=== PATIENT | female | born 1960 | race Caucasian/White ===

== ENCOUNTER 2023-02-24 08:08 | Outpatient (RCR) | payer OTHER, SELFPAY | END 2023-02-24 23:59 | disposition home or self-care (01) | LOC: RPT 08:08 | PROVIDERS: ATTENDING PHYSICIAN Orthopaedic Surgery; PRIMARYCARE PHYSICIAN Family Medicine | DX: N39.3 Stress incontinence (female) (male) (principal); M54.9 Dorsalgia, unspecified; R15.1 Fecal smearing; R15.2 Fecal urgency; Z73.6 Limitation of activities due to disability; R10.2 Pelvic and perineal pain; N94.10 Unspecified dyspareunia | CPT/HCPCS: 97014; 97112; 97140; 97530 ==

== ENCOUNTER 2023-03-14 12:06 | Outpatient (RCR) | payer OTHER, SELFPAY | END 2023-04-07 14:51 | disposition home or self-care (01) | LOC: RPT 12:06 | PROVIDERS: ATTENDING PHYSICIAN Internal Medicine Gastroenterology; PRIMARYCARE PHYSICIAN Family Medicine | DX: N39.3 Stress incontinence (female) (male) (principal); M54.9 Dorsalgia, unspecified; R15.1 Fecal smearing; R15.2 Fecal urgency; R10.2 Pelvic and perineal pain; N94.10 Unspecified dyspareunia | CPT/HCPCS: 97110; 97112; 97140; 97530 ==

== ENCOUNTER → 2023-04-18 13:24 | Outpatient (REF) | payer OTHER, SELFPAY | LOC: HWWDC 13:24 | PROVIDERS: ATTENDING PHYSICIAN Obstetrics & Gynecology; FAMILY PHYSICIAN Family Medicine | DX: Z12.31 Encounter for screening mammogram for malignant neoplasm of breast (principal) | CPT/HCPCS: 77063; 77067 ==

== ENCOUNTER 2023-04-20 14:52 | Outpatient (RCR) | payer OTHER, SELFPAY | END 2023-04-20 23:59 | disposition home or self-care (01) | LOC: RPT 14:52 | PROVIDERS: ATTENDING PHYSICIAN Internal Medicine Gastroenterology; PRIMARYCARE PHYSICIAN Family Medicine | DX: N39.3 Stress incontinence (female) (male) (principal); M54.9 Dorsalgia, unspecified; R15.1 Fecal smearing; R15.2 Fecal urgency; R10.2 Pelvic and perineal pain; N94.10 Unspecified dyspareunia | CPT/HCPCS: 97110; 97530 ==

== ENCOUNTER → 2023-08-10 09:16 | Outpatient (REF) | payer OTHER, SELFPAY | LOC: HWRAD 09:16 | PROVIDERS: ATTENDING PHYSICIAN Internal Medicine; FAMILY PHYSICIAN Family Medicine | DX: M81.0 Age-related osteoporosis without current pathological fracture (principal) | CPT/HCPCS: 77080 ==

== ENCOUNTER 2024-05-23 06:22 | Day surgery (SDC) | payer OTHER, SELFPAY | END 2024-05-23 08:54 | disposition home or self-care (01) | LOC: GI 06:22 | PROVIDERS: ATTENDING PHYSICIAN Internal Medicine Gastroenterology; FAMILY PHYSICIAN Family Medicine | DX: K51.50 Left sided colitis without complications (principal); K57.30 Diverticulosis of large intestine without perforation or abscess without bleeding; K64.8 Other hemorrhoids | CPT/HCPCS: 45385; 45380; 88305 ==

== ENCOUNTER → 2024-06-28 11:31 | Outpatient (REF) | payer OTHER, SELFPAY | LOC: HWWDC 11:31 | PROVIDERS: ATTENDING PHYSICIAN Obstetrics & Gynecology; FAMILY PHYSICIAN Family Medicine | DX: Z12.31 Encounter for screening mammogram for malignant neoplasm of breast (principal) | CPT/HCPCS: 77063; 77067 ==